=== PATIENT | male | born 1995 | race Caucasian/White ===

== ENCOUNTER 2017-12-22 02:46 | Emergency (ER) | payer OTHER ==
[~2017-12-22] VITALS: Ht 182.9 cm; Wt 86.2 kg
--- NOTE | 2017-12-22 02:55 | NUR ---
BB MOTHER FROM HOME C/O NOSE BLEED ON/OFF ALL DAY S/P NOSE SX. PT IS AAOX4. NOSE CAST NOTED. PT STATES HE RECENTLY HAD A SURGERY FOR DEVIATED SEPTUM REPAIR. RESP EVEN AND UNLABORED. NO S/S OF ACUTE DISTRESS NOTED. SKIN WNL. PT GOWNED AND PLACED ON MONITOR AND POX. PT SAFETY AND COMFORT MEASURES IN PLACE. AWAITING MD FOR EVAL.
--- NOTE | 2017-12-22 02:57 | NUR ---
BEDSIDE FOR PT EVAL.
[2017-12-22] MEDS ORDERED: DESMOPRESSIN 4 MCG/ML AMPUL ONE (03:44)
[2017-12-22] MEDS ORDERED: PHENYLEPHRINE 0.5% NASAL SPRAY 15 ML BOTTLE NS ONE ×2 (03:48→04:00)
--- NOTE | 2017-12-22 03:54 | NUR ---
BEDSIDE SPEAKING TO PT AND MOTHER.
[2017-12-22] MEDS ORDERED: PHENYLEPHRINE 1% NASAL SPRAY 15 ML BOTTLE NS PRN (04:00)
[2017-12-22] MEDS ORDERED: DESMOPRESSIN IV ONE (04:00)
[2017-12-22] MEDS ORDERED: NS 0.9% IV ONE (04:00)
--- NOTE | 2017-12-22 05:21 | NUR ---
Patient discharged to home in stable condition. Written and verbal after care instructions given. Patient verbalizes understanding of instruction.IV removed. Catheter intact and site benign. Pressure and 4x4 applied to site. No bleeding noted. VSS upon discharge. Nosebleed subsided and no active bleeding noted. Pt ambulated with steady gait out of ER with mother.
[2017-12-22 05:22] VITALS: BP 124/76
== END 2017-12-22 05:23 | disposition home or self-care (01) ==
LOC: ER 02:48
DX: R04.0 Epistaxis (principal); J34.2 Deviated nasal septum; Z98.890 Other specified postprocedural states
CPT/HCPCS: A4216; A4606; J2597; Z7610